=== PATIENT | male | born 1995 | race Caucasian/White ===

== ENCOUNTER 2024-07-19 07:55 | Day surgery (SDC) | payer SELFPAY ==
[2024-07-19] VITALS (8 sets, daily range): BP systolic 120–142; BP diastolic 70–92; PULSE 59–85; RESP 16–18; TEMP 36.3–36.9; O2SAT 94–100; BMI 37.2
--- NOTE | 2024-07-19 07:59 | PCM.PRE.AN2 ---
ASA Classification* ASA Classification ASA Classification: 2 Assessment & Plan Anesthesia* Anesthesia Assessment Anesthesia Assessment: Discussed sedation and/or anesthesia options, risks, benefits, and alternatives with patient/parents/legal guardian/POA. Questions invited. The patient/parents/legal guardian/POA seems to understand and agrees to proceed with anesthesia plan. Reviewed the physical assessment, medical history, allergy history and patient home medications list prior to surgery/procedure/anesthetic and documented any changes. Performed airway and anesthesia risk assessments. Anesthesia Type Anesthesia Type: MAC Anesthesia Focused Assessment* Airway Assessment Mouth opens: >3 cm Mallampati Score: II Focused Labs Anesthesia Preop lab: CBC CHEMISTRY COAG Pre-Assessment Diagnosis/Proposed Procedure Planned Operative Procedure(s): CSCOPE Anesthesia History Anesthesia History - it security manager: Anesthesia History - it security manager Hx Hospitalization No 07/16/24 11:29 Any Problems With Anesthesia No 07/16/24 11:29 Cholinesterase deficiency No 07/16/24 11:29 You/Your Family Experience No 07/16/24 11:29 fever (hyperthermia) with Relationship Recent Exposure to Contagious Disease Does patient have nerve No 07/16/24 11:29 stimulator Patient instructed to have device shut off --Does patient have Pacemaker or ICD? When Was Last Pacemaker Check QUESTION #4 FULL TEXT: You/Your Family Experience fever (hyperthermia) with Anesthesia Last Oral Intake Last Oral intake: Last Oral Intake NPO since Meds taken in AM with sips of water? Meds patient instructed to take am of surgery PONV PONV - it security manager: PONV - it security manager Female No 07/16/24 11:29 HX of Motion Sickness No 07/16/24 11:29 HX of N/V After Surgery No 07/16/24 11:29 Non-Smoker Yes 07/16/24 11:29 Duration of Surgery greater No 07/16/24 11:29 than 60 minutes Number of Risk Factors 1 07/16/24 11:29 PONV Score Low Risk 07/16/24 11:29 Height & Weight Height & Weight: Anesthesia: Height & Weight Height 6 ft 06/05/24 09:02 Respiratory Assessment Respiratory Assessment - it security manager: Respiratory Tract Infection Hx - it security manager Hx Respiratory Tract Infection No 07/16/24 11:29 STOP Sleep Apnea STOP Sleep Apnea - it security manager: STOP Sleep Apnea - it security manager Hx Hypertension No 07/16/24 11:29 Hx Sleep Apnea No 07/16/24 11:29 CPAP BIPAP Do you snore loudly (louder Yes 07/16/24 11:29 than talking or can be heard Do you often feel tired/ No 07/16/24 11:29 fatigued/ sleepy during daytime? Has anyone observed you stop Yes 07/16/24 11:29 breathing during sleep? STOP Results Positive 07/16/24 11:29 QUESTION #5 FULL TEXT : Do you snore loudly (louder than talking or can be heard through closed doors)? Tobacco Use History Tobacco Use History - it security manager: Tobacco Use History - it security manager Tobacco Use Smoking Status Never smoker 07/16/24 11:29 Hx Tobacco Use No 07/16/24 11:29 Years Smoking Packs Smoked per Day Smoking Cessation Date was within the last 15 years Hx Smoking Cessation Date Hx Smoking Cessation Counseling Hematologic Medial History Hematologic Hx - it security manager: Hematologic Medical Hx - surg physician asst Hx of Blood Transfusion No 07/16/24 11:29 Hx of Transfusion in last 3 No 07/16/24 11:29 Months Date of Last Transfusion (if within last 3 months) Ever experience any problems No 07/16/24 11:29 with transfusion(s)? Specify any problems Hx of Preganancy in last 3 N/A 07/16/24 11:29 Months Nurse Filling Out Transfusion DSCHRIBER 07/16/24 11:29 & Questions: Date: 07/16/24 07/16/24 11:29 Time: 11:31 07/16/24 11:29 Patient unable to answer at this time (ie. confused, unrespo /Reproduction History /Reproductive History - it security manager: /Reproductive Hx- it security manager Hx Now No 07/16/24 11:29 Gestational Age (in weeks): EDC: Hx Hx Para Hx Section SAB No 07/16/24 11:29 PFSH Medical History Non-smoker Shortness of breath on exertion Leg cramps Hx of head injury Acid reflux Home Medications ?Medication ?Instructions ?Recorded ?Last Taken ?Type ascorbic acid (vitamin C) 1,000 mg 1 g PO QDAY 06/05/24 Unknown History capsule cholecalciferol (vitamin D3) 25 25 mcg PO QDAY 06/05/24 Unknown History mcg (1,000 unit) capsule omega-3 fatty acids 1,000 mg 1,000 mg PO QDAY 06/05/24 Unknown History capsule Allergy/AdvReac Type Severity Reaction Status Date / Time No Known Allergies Allergy Verified 07/16/24 11:28 Family History Grandfather Diabetes Grandmother Colon cancer Grandmother Breast cancer Father Hypertension Social History Smoking Status: Never smoker alcohol intake: never Review of Systems (Anesthesia) ROS Narrative System reviewed and no additional complaints, except as documented.
[2024-07-19] MEDS: Lactated Ringers 1,000 ML 15 ML IV (08:23)
--- NOTE | 2024-07-19 09:06 | PCM.HP.STD ---
HPI - General General Date of Admission: 07/19/24 Date of Service: 07/19/24 Chief Complaint: colonoscopy HPI Narrative The patient is a 28-year-old male who presents today for colonoscopy. He has been having periodic rectal bleeding off and on for the past 6 months or so. It sounds as though this is more than likely related to hard stools and constipation however he does have a family history of early colon cancer. His maternal grandmother apparently of colon cancer in her 60s. He states that the blood is usually knows maybe about once a month on average. [facility] Medical History Non-smoker Shortness of breath on exertion Leg cramps Hx of head injury Acid reflux Home Medications ?Medication ?Instructions ?Recorded ?Last Taken ?Type ascorbic acid (vitamin C) 1,000 mg 1 g PO QDAY 06/05/24 Unknown History capsule cholecalciferol (vitamin D3) 25 25 mcg PO QDAY 06/05/24 Unknown History mcg (1,000 unit) capsule omega-3 fatty acids 1,000 mg 1,000 mg PO QDAY 06/05/24 Unknown History capsule Allergy/AdvReac Type Severity Reaction Status Date / Time No Known Allergies Allergy Verified 07/19/24 08:11 Family History Grandfather Diabetes Grandmother Colon cancer Grandmother Breast cancer Father Hypertension Social History Smoking Status: Never smoker alcohol intake: never Vital Signs Vital Signs Vital Signs: 07/19/24 08:18 07/19/24 08:18 Temperature 97.7 F L Temperature Source Temporal Pulse Rate 66 Respiratory Rate 18 Respiratory Pattern Normal Blood Pressure 142/92 H Blood Pressure Mean 108 Blood Pressure Source Monitor Blood Pressure Position Sitting Blood Pressure Location Left Arm Pulse Ox 100 Oxygen Delivery Method Room Air Weight Weight: 266 lb 12.149 oz Body Mass Index (BMI) 37.2 Physical Exam Const alert, oriented x3 and no apparent distress Assessment & Plan Assessment/Plan (1) Blood in stool: PLAN: Plan The patient is a 28-year-old male who presents today for colonoscopy. He has been having some issues with rectal bleeding for the past 6 months or so. He does have a family history of colon cancer. For this reason we have advised colonoscopy even at his young age. We discussed the details of the planned procedure including risks benefits and alternatives. He wishes to proceed. This procedure will begin momentarily Charges/Coding Visit Charges Inpatient E&M: 27859 Init Hosp L1
--- NOTE | 2024-07-19 09:47 | PCM.POST.ANE ---
Anesthesia: Postop Eval I Current Vital Signs Temperature: 98.5 F Pulse Rate: 75 Blood Pressure: 120/76 Respiratory Rate: 16 Pulse Ox: 95 Oxygen Delivery Method: Room Air Assessment Airway patent: Yes Spontaneous unlabored respirations: Yes Mental status: Awake and Calm nausea: No Vomiting: No Anesthesia Complication: No Fluid Hydration Crystalloid volume administer (ml): 600 Total IV fluid infused: 600 Progress Note Anesthesia document: Postop Eval 1 completed: Yes
--- NOTE | 2024-07-19 09:53 | OP.COLON_ITS ---
Patient Name: Geovany Hood Procedure Date: 07/19/2024 8:52 AM Date of : 1995 Age: 28 Procedure: Colonoscopy Indications: Rectal bleeding Providers: Basil Lancaster MD Referring MD: Kristofer Leyva Medicines: Monitored Anesthesia Care Patient Profile: This is a 28 year old male. Refer to note in patient chart for documentation of history and physical. Last Colonoscopy: none. The patient's first colonoscopy is today. Complications: No immediate complications. Estimated blood loss: None. Procedure: Pre-Anesthesia Assessment: - Prior to the procedure, a History and Physical was performed, and patient medications and allergies were reviewed. The patient's tolerance of previous anesthesia was also reviewed. The risks and benefits of the procedure and the sedation options and risks were discussed with the patient. All questions were answered, and informed consent was obtained. Prior Anticoagulants: The patient has taken no anticoagulant or antiplatelet agents. ASA Grade Assessment: II - A patient with mild systemic disease. After reviewing the risks and benefits, the patient was deemed in satisfactory condition to undergo the procedure. After I obtained informed consent, the scope was passed under direct vision. Throughout the procedure, the patient's blood pressure, pulse, and oxygen saturations were monitored continuously. The adult colonoscope was introduced through the anus and advanced to the cecum, identified by appendiceal orifice and ileocecal valve. The ileocecal valve, appendiceal orifice, and rectum were photographed. The entire colon was well visualized. The colonoscopy was performed without difficulty. The patient tolerated the procedure well. The quality of the bowel preparation was adequate. Moderate Sedation: See the other procedure note for documentation of moderate sedation with intraservice time. Scope In: 9:19:07 AM Scope Withdrawal Time 0 hours 12 minutes 30 seconds Scope Out: 9:39:40 AM Total Procedure Duration Time 0 hours 20 minutes 33 seconds Findings: The perianal and digital rectal examinations were normal. Non-bleeding internal hemorrhoids were found during retroflexion. The hemorrhoids were medium-sized. The exam was otherwise without abnormality on direct and retroflexion views. Impression: - Non-bleeding internal hemorrhoids. - The examination was otherwise normal on direct and retroflexion views. - No specimens collected. Recommendation: - Discharge patient to home (ambulatory). - High fiber diet indefinitely. - Repeat colonoscopy in 10 years for screening purposes. - Return to my office PRN. - Continue present medications. Procedure Code(s): --- Professional --- 82193, Colonoscopy, flexible; diagnostic, including collection of specimen(s) by brushing or washing, when performed (separate procedure) Diagnosis Code(s): --- Professional --- K64.8, Other hemorrhoids K62.5, Hemorrhage of anus and rectum CPT copyright 2021 [employer]. All rights reserved. The codes documented in this report are preliminary and upon engineering officer review may be revised to meet current compliance requirements. Basil Lancaster MD 07/19/2024 9:53:34 AM This report has been signed electronically. Number of Addenda: 0 Note Initiated On: 07/19/2024 8:52 AM
--- NOTE | 2024-07-19 09:54 | OP.CCLET_ITS ---
07/19/2024 Kristofer Leyva Re : Colonoscopy procedure for Geovany Hood Dear Mathew This procedure was performed on Friday, July 19, 2024. My impressions and recommendations are as follows: Impressions : - Non-bleeding internal hemorrhoids. - The examination was otherwise normal on direct and retroflexion views. - No specimens collected. Recommendations : - Discharge patient to home (ambulatory). - High fiber diet indefinitely. - Repeat colonoscopy in 10 years for screening purposes. - Return to my office PRN. - Continue present medications. My findings are described in the full procedure note, which is enclosed. If I can be of further assistance, please feel free to contact me at . Sincerely, Basil Lancaster MD 07/19/2024 9:53:34 AM This report has been signed electronically.
--- NOTE | 2024-07-19 10:23 | PCM.POSTANE2 ---
Anesthesia Postop Eval I Sum Postop Eval Completion status Anesthesia document: Postop Eval 1 completed: Yes Anesthesia Postop Eval I Summary Anesthesia Postop Eval I Summary: Anesthesia Postop Eval I: Assessment Summary Airway patent Yes 07/19/24 09:48 [email or web address] Spontaneous unlabored Yes 07/19/24 09:48 [email or web address] respirations Mental status Awake,Calm 07/19/24 09:48 [email or web address] nausea No 07/19/24 09:48 [email or web address] Vomiting No 07/19/24 09:48 [email or web address] Anesthesia Postop Eval I: Fluid Summary Crystalloid volume administer 600 07/19/24 09:48 [email or web address] (ml) Colloids volume administered ( ml) Blood Product volume administered (ml) Total IV fluid infused 600 07/19/24 09:48 [email or web address] Anesthesia Postop Eval I: Summary Notes Anesthesia Complication No 07/19/24 09:48 [email or web address] Anesthesia Complication Comment: Post-operative progress note Anesthesia: Postop Eval II Evaluation Mental status: Awake Pain Level: 0 nausea: No Vomiting: No
== END 2024-07-19 10:42 | disposition home or self-care (01) ==
LOC: EN 07:58 → AC 07:58
PROVIDERS: PCP Physician Assistant; Referring Provider Physician Assistant; Visit Provider Surgery
PROC: 0DJD8ZZ Inspection of Lower Intestinal Tract, Via Natural or Artificial Opening Endoscopic (ICD-10-PCS; CPT 45378; principal; 2024-07-19 08:40)
DX: K64.8 Other hemorrhoids (principal); K62.5 Hemorrhage of anus and rectum; Z80.0 Family history of malignant neoplasm of digestive organs
CPT/HCPCS: 45378; J2405